=== PATIENT | male | born 1950 | race Caucasian/White ===

== ENCOUNTER 2023-03-14 15:06 | Inpatient (IN) | payer MEDICARE, OTHER ==
[~2023-03-14] VITALS: Ht 185.4 cm; Wt 113.5 kg
[2023-03-14 16:13] LABS: BASOPHILS % (AUTO) 0.2 % (0.0-2.0); EOSINOPHILS % (AUTO) 0.6 % (1.0-6.0); HEMATOCRIT 38.1 % (41-53); HEMOGLOBIN 13.2 g/dL (13.5-17.5); LYMPHOCYTES # (AUTO) 1.3 K/uL (1.0-4.8); LYMPHOCYTES % (AUTO) 20.5 % (22.0-44.0); MEAN CORPUSCULAR HEMOGLOBIN 31.1 pg (26.0-34.0); MEAN CORPUSCULAR HGB CONC 34.5 G/dL (31.0-37.0); MEAN CORPUSCULAR VOLUME 90 fL (80-100); MONOCYTES # (AUTO) 0.4 K/uL (0.1-1.0); MONOCYTES % (AUTO) 6.8 % (2.0-9.0); NEUTROPHILS # (AUTO) 4.7 K/uL (1.8-7.7); NEUTROPHILS % (AUTO) 71.9 % (40.0-70.0); RED BLOOD CELL COUNT(AUTO) 4.23 MIL/uL (4.50-5.90); RED CELL DISTRIBUTION WIDTH 13.8 % (11.5-14.5); WHITE BLOOD COUNT (AUTO) 6.6 K/uL (4.5-11.0)
[2023-03-14 16:14] LABS: ANION GAP 1 mmol/L (8-16); CALCIUM, TOTAL 8.9 mg/dL (8.8-10.5); CARBON DIOXIDE 32 mmol/L (22-29); CHLORIDE 104 mmol/L (98-107); CREATININE 1.25 mg/dL (0.60-1.30); GLOMERULAR FILTR. RATE CALC 57 mL/min (>60); GLUCOSE,RANDOM 123 mg/dL (70-110); POTASSIUM 4.4 mmol/L (3.5-5.1); SODIUM SERUM 137 mmol/L (136-145); UREA NITROGEN, BLOOD 26 mg/dL (7-18)
[2023-03-14 16:16] LABS: PROTHROMBIN TIME 10.5 SEC (9.4-11.6)
[2023-03-14 16:22] LABS: LACTIC ACID 1.4 mmol/L (0.4-2.0); TROPONIN I-HIGH SENSITIVITY 9 ng/L (<76)
[2023-03-14 16:29] LABS: ALANINE AMINOTRANSFERASE 15 U/L (12-78); ALBUMIN 3.2 g/dL (3.4-5.0); ALKALINE PHOSPHATASE 79 U/L (46-116); ASPARTATE AMINOTRANSFERASE 11 U/L (15-37); BILIRUBIN,TOTAL 0.6 mg/dL (0.1-1.0); CREATINE KINASE, TOTAL ONLY 25 U/L (39-308)
[2023-03-14 16:36] LABS: AMMONIA < 10 umol/L (11-32)
[2023-03-14 16:37] LABS: PLATELET COUNT (AUTO) 83 K/uL (150-450)
[2023-03-14 17:59] LABS: APPEARANCE,URINE CLEAR (CLEAR); BILIRUBIN,URINE NEGATIVE (NEGATIVE); COLOR,URINE YELLOW (YELLOW); GLUCOSE, URINE (UA) NEGATIVE (NEGATIVE); KETONES,URINE NEGATIVE (NEGATIVE); LEUKOCYTE ESTERASE ,URINE NEGATIVE (NEGATIVE); NITRATE,URINE NEGATIVE (NEGATIVE); OCCULT BLOOD,URINE NEGATIVE (NEGATIVE); PROTEIN,URINE NEGATIVE (NEGATIVE); SPECIFIC GRAVITIY, URINE 1.032 (1.003-1.030)
[2023-03-14 18:07] LABS: ALCOHOL, URINE DRUG SCREEN NEGATIVE (NEGATIVE); AMPHET/METH SCREEN,URINE NEGATIVE (NEGATIVE); BARBITURATE SCREEN, URINE NEGATIVE (NEGATIVE); BENZODIAZEPINES SCREEN,URINE NEGATIVE (NEGATIVE); CANNABINOID SCREEN,URINE NEGATIVE (NEGATIVE); COCAINE SCREEN,URINE NEGATIVE (NEGATIVE); METHADONE SCREEN, URINE NEGATIVE (NEGATIVE); OPIATE SCREEN,URINE POSITIVE (NEGATIVE); PHENCYCLIDINE SCREEN,URINE NEGATIVE (NEGATIVE)
[2023-03-14] MEDS ORDERED: SODIUM CHLORIDE 0.9% 1,000 ML IV ONE (19:15)
[2023-03-14 21:42] LABS: COVID AG,FIA SOURCE NASAL SWAB
[2023-03-14 21:59] LABS: SARS-COV2 (COVID) ANTIGEN,FIA Negative (Negative)
[2023-03-14 22:46] LABS: TROPONIN I-HIGH SENSITIVITY 9 ng/L (<76)
[2023-03-14 23:16] LABS: CHOL/HDL RATIO 4.8 (4.2-7.3)
[2023-03-15] VITALS (7 sets, daily range): BP systolic 97–158; BP diastolic 53–96; PULSE 61–85; RESP 16–18; TEMP 97.5–98.3
[2023-03-15] MEDS ORDERED: SODIUM CHLORIDE 0.9% 100 ML ONE (00:46)
[2023-03-15] MEDS ORDERED: IOHEXOL 350 MG/ML 100 ML VIAL ONE (00:47)
[2023-03-15] MEDS: HEPARIN SODIUM,PORCINE 5,000 UNITS/ML VIAL SQ SCH ×4 (03:34→23:34)
[2023-03-15 07:36] LABS: BASOPHILS % (AUTO) 0.3 % (0.0-2.0); EOSINOPHILS % (AUTO) 1.6 % (1.0-6.0); HEMATOCRIT 38.1 % (41-53); HEMOGLOBIN 13.1 g/dL (13.5-17.5); LYMPHOCYTES # (AUTO) 1.5 K/uL (1.0-4.8); LYMPHOCYTES % (AUTO) 30.1 % (22.0-44.0); MEAN CORPUSCULAR HEMOGLOBIN 31.1 pg (26.0-34.0); MEAN CORPUSCULAR HGB CONC 34.4 G/dL (31.0-37.0); MEAN CORPUSCULAR VOLUME 91 fL (80-100); MONOCYTES # (AUTO) 0.4 K/uL (0.1-1.0); MONOCYTES % (AUTO) 8.4 % (2.0-9.0); NEUTROPHILS % (AUTO) 59.6 % (40.0-70.0); RED CELL DISTRIBUTION WIDTH 13.6 % (11.5-14.5); WHITE BLOOD COUNT (AUTO) 5.1 K/uL (4.5-11.0)
[2023-03-15 07:41] LABS: ANION GAP 4 mmol/L (8-16); CALCIUM, TOTAL 8.7 mg/dL (8.8-10.5); CARBON DIOXIDE 30 mmol/L (22-29); CHLORIDE 102 mmol/L (98-107); CREATININE 0.89 mg/dL (0.60-1.30); GLOMERULAR FILTR. RATE CALC > 60 mL/min (>60); GLUCOSE,RANDOM 129 mg/dL (70-110); POTASSIUM 3.8 mmol/L (3.5-5.1); SODIUM SERUM 136 mmol/L (136-145); UREA NITROGEN, BLOOD 20 mg/dL (7-18)
[2023-03-15 07:51] LABS: TROPONIN I-HIGH SENSITIVITY 11 ng/L (<76)
[2023-03-15] MEDS: ASPIRIN 81 MG CHEWABLE TABLET PO SCH (08:39)
[2023-03-15] MEDS ORDERED: GADOTERATE MEGLUMINE 10 MMOL/20 ML VIAL IVP ONE (09:24)
[2023-03-15 09:44] LABS: PLATELET COUNT (AUTO) 94 K/uL (150-450)
[2023-03-16 03:53] VITALS: BP 117/72; PULSE 79; RESP 18; TEMP 98.2
[2023-03-16 07:23] VITALS: BP 121/68; PULSE 80; RESP 18; TEMP 98
[2023-03-16] MEDS: HEPARIN SODIUM,PORCINE 5,000 UNITS/ML VIAL SQ SCH ×2 (08:00→16:00)
[2023-03-16] MEDS: ASPIRIN 81 MG CHEWABLE TABLET PO SCH (08:20)
[2023-03-16] MEDS ORDERED: GADOTERATE MEGLUMINE 10 MMOL/20 ML VIAL IVP ONE (08:50)
[2023-03-16 11:09] VITALS: BP 108/58; PULSE 60; RESP 19; TEMP 98.3
[2023-03-16 16:23] VITALS: BP 125/82; PULSE 69; RESP 18; TEMP 97.7
[2023-03-16 18:59] VITALS: BP 126/77; PULSE 73; RESP 20; TEMP 98.3
[2023-03-16 20:42] VITALS: BP 135/74; PULSE 60; RESP 18; TEMP 98.4
[2023-03-17 04:39] VITALS: BP 152/76; PULSE 62; RESP 20; TEMP 98.3
[2023-03-17 08:16] VITALS: BP 141/92; PULSE 62; RESP 18; TEMP 98.1
[2023-03-17] MEDS: HEPARIN SODIUM,PORCINE 5,000 UNITS/ML VIAL SQ SCH ×2 (08:29)
[2023-03-17] MEDS: ASPIRIN 81 MG CHEWABLE TABLET PO SCH (08:30)
[2023-03-17] MEDS ORDERED: GABA-1181 PO (12:39)
[2023-03-17] MEDS ORDERED: ASPI81TA87 PO (12:40)
== END 2023-03-17 15:32 | DRG 544 ==
LOC: EMS 15:08 → EDBD 15:08 → 5S 21:31 → 6S 03-16 19:30
PROVIDERS: ADMIT Internal Medicine; ATTEND Internal Medicine
DX: M48.56XA Collapsed vertebra, not elsewhere classified, lumbar region, initial encounter for fracture (principal); R53.1 Weakness; I67.2 Cerebral atherosclerosis; E78.5 Hyperlipidemia, unspecified; R29.6 Repeated falls; R00.1 Bradycardia, unspecified; D69.6 Thrombocytopenia, unspecified; M19.90 Unspecified osteoarthritis, unspecified site; Z20.822 Contact with and (suspected) exposure to COVID-19; R62.7 Adult failure to thrive; R55 Syncope and collapse; Z68.33 Body mass index [BMI] 33.0-33.9, adult; Z79.899 Other long term (current) drug therapy; Z85.828 Personal history of other malignant neoplasm of skin; Z86.73 Personal history of transient ischemic attack (TIA), and cerebral infarction without residual deficits
CPT/HCPCS: 70450; 70496; 70498; 70553; 71045; 72125; 72158; 76770; 80048; 80053; 80061; 80307; 81003; 82140; 82550; 83605; 83735; 84443; 84484; 85025; 85610; 85730; 87040; 92610; 93005; 93306; 97162; 97166; 97535; 99285; J1644; J7030; J7050; Q9967; 36415-L1; 36415-TC